=== PATIENT | female | born 1990 | race Two or more races ===

== ENCOUNTER 2022-01-15 07:32 | Day surgery (SDC) | payer OTHER ==
[~2022-01-15] VITALS: Ht 149.9 cm; Wt 53.5 kg
[~2022-01-15 07:32] MED LIST: VITATRUE COMBO1 EACH PO
== END 2022-01-15 19:05 | disposition home or self-care (01) ==
LOC: CIR.AMB 07:32
PROVIDERS: ATTEND Specialist
DX: D06.0 Carcinoma in situ of endocervix (principal); N88.8 Other specified noninflammatory disorders of cervix uteri; Z20.822 Contact with and (suspected) exposure to COVID-19; Z88.6 Allergy status to analgesic agent; J45.909 Unspecified asthma, uncomplicated

== ENCOUNTER 2022-07-14 11:45 | Inpatient (IN) | payer OTHER ==
[~2022-07-14] VITALS: Ht 132.1 cm; Wt 54.4 kg
== END 2022-07-18 16:42 | disposition home or self-care (01) | DRG 743 ==
LOC: O/R 07-16 05:30 → OB/GYN 07-16 05:30 → SURG 07-16 11:45 → OB/GYN 07-18 16:42
PROVIDERS: ADMIT Specialist; ATTEND Specialist
PROC: 0UT70ZZ Resection of Bilateral Fallopian Tubes, Open Approach (ICD-10-PCS; 2022-07-16)
PROC: 0UT90ZZ Resection of Uterus, Open Approach (ICD-10-PCS; principal; 2022-07-16 14:00)
DX: N85.01 Benign endometrial hyperplasia (principal); N73.6 Female pelvic peritoneal adhesions (postinfective); Z20.822 Contact with and (suspected) exposure to COVID-19